=== PATIENT | male | born 1985 | race Caucasian/White ===

== ENCOUNTER 2016-10-18 16:19 | Emergency (ER) | payer BC, OTHER ==
[2016-10-18] MEDS ORDERED: Sodium Chloride 0.9% 2.5 ML Syringe FLUSH PRN (16:59)
[2016-10-18] MEDS ORDERED: Famotidine 20 MG/2 ML SDV IVPUSH ONE (16:59)
[2016-10-18] MEDS ORDERED: Sodium Chloride 0.9% 1,000 ML IV ONE (16:59)
[2016-10-18] MEDS ORDERED: Sodium Chloride 0.9% 10 ML Syringe FLUSH PRN (16:59)
--- NOTE | 2016-10-18 17:05 | EDM.PDOC ---
ED HISTORY OF PRESENT ILLNESS - General Chief Complaint: Chest Pain Stated Complaint: CHEST PAIN Time Seen by Provider: 10/18/16 16:25 Source of Information: Reports: Patient History Limitations: Reports: No limitations - History of Present Illness INITIAL COMMENTS - FREE TEXT/NARRATIVE: History of present illness: [] Patient has had 3 weeks of constant chest pain and upper abdominal pain. It' s sharp and pinching in the only time it is alleviated his when he eats or drinks. He denies any vomiting, diarrhea, fevers, chills or shortness of breath. Patient states he has been diagnosed with costochondritis in the past and has had a gallon of water fall on his chest 5 years ago. He works out regularly and has not been able to work out for the past 3 weeks because of having the flu he states his chest pain is always worse when he does not work out. Patient smokes and drinks alcohol. Review of systems: As per history of present illness and below otherwise all systems reviewed and negative. Past medical history: As per history of present illness and as reviewed below otherwise noncontributory. Surgical history: As per history of present illness and as reviewed below otherwise noncontributory. Social history: No reported history of drug or alcohol abuse. Family history: As per history of present illness and as reviewed below otherwise noncontributory. Physical exam: General: Well developed, well nourished in NAD HEENT: Atraumatic, normocephalic, pupils reactive, negative for conjunctival pallor or scleral icterus, mucous membranes moist, throat clear, neck supple, nontender, trachea midline. Lungs: Clear to auscultation, breath sounds equal bilaterally, chest nontender. Heart: S1S2, regular, negative for clicks, rubs, or JVD. Abdomen: Soft, nondistended, nontender. Negative for masses or hepatosplenomegaly. Negative for costovertebral tenderness. Pelvis: Stable nontender. Genitourinary: Deferred. Rectal: Deferred. Extremities: Atraumatic, negative for cords or calf pain. Neurovascular unremarkable. Neuro: Awake, alert, oriented. Cranial nerves II through XII unremarkable. Cerebellum unremarkable. Motor and sensory unremarkable throughout. Exam nonfocal. Diagnostics: [] lab EKG x-rays all negative in the ED Therapeutics: [] IV hydrated Pepcid IV given Impression: [] duodenal ulcer given symptoms and history and negative workup in the ED. Plan: [] Prilosec twice a day followup with primary care physician Definitive disposition and diagnosis as appropriate pending reevaluation and review of above. - Related Data Allergies/ADRs: Allergies Allergy/AdvReac Type Severity Reaction Status Date / Time No Known Allergies Allergy Verified 10/18/16 16:57 Home Meds: Home Meds . [No Known Home Meds] 10/18/16 [History] Past Medical History - Past Health History Medical/Surgical History: Denies Medical/Surgical History Social & Family History - Tobacco Use Smoking Status *Q: Unknown Ever Smoked Second Hand Smoke Exposure: No - Alcohol Use Days Per Week of Alcohol Use: 0 Number of Drinks Per Day: 5 Total Drinks Per Week: 0 - Recreational Drug Use Recreational Drug Use: No ED ROS GENERAL - Review of Systems Review Of Systems: See Below (See history of present illness) ED EXAM, GENERAL - Physical Exam Exam: See Below (See history of present illness) Course - Vital Signs Last Recorded V/S: Last Vital Signs Temp 37.3 C 10/18/16 16:40 Pulse 93 10/18/16 16:40 Resp 16 10/18/16 16:40 BP 118/73 10/18/16 16:40 Pulse Ox 95 10/18/16 16:40 - Orders/Labs/Meds Orders: Active Orders 24 hr Category Date Time Status EKG Documentation Completion [RC] STAT Care 10/18/16 16:59 Active Chest 2V [CR] Stat Exams 10/18/16 17:04 Taken Sodium Chloride 0.9% [Saline Flush] Med 10/18/16 16:59 Active 10 ml FLUSH ASDIRECTED PRN Sodium Chloride 0.9% [Saline Flush] Med 10/18/16 16:59 Active 2.5 ml FLUSH ASDIRECTED PRN Peripheral IV Insertion Adult [OM.PC] Stat Oth 10/18/16 16:59 Ordered Medication Orders Sodium Chloride (Saline Flush) 10 ml FLUSH ASDIRECTED PRN PRN Reason: Keep Vein Open Last Admin: 10/18/16 17:59 Dose: 10 ml Sodium Chloride (Saline Flush) 2.5 ml FLUSH ASDIRECTED PRN PRN Reason: Keep Vein Open Last Admin: 10/18/16 17:59 Dose: 2.5 ml Labs: Laboratory Tests 10/18/16 10/18/16 10/18/16 Range/Units 17:21 17:21 17:21 WBC 4.67 (4.0-11.0) K/uL RBC 4.65 (4.50-5.90) M/uL Hgb 13.8 (13.0-17.0) g/dL Hct 41.5 (38.0-50.0) % MCV 89.2 (80.0-98.0) fL MCH 29.7 (27.0-32.0) pg MCHC 33.3 (31.0-37.0) g/dL RDW Std Deviation 43.0 (28.0-62.0) fl RDW Coeff of Jerrod 13 (11.0-15.0) % Plt Count 203 (150-400) K/uL MPV 8.80 (7.40-12.00) fL Neut % (Auto) 68.1 (48.0-80.0) % Lymph % (Auto) 17.1 (16.0-40.0) % [place] % (Auto) 12.2 (0.0-15.0) % Eos % (Auto) 2.4 (0.0-7.0) % Baso % (Auto) 0.2 (0.0-1.5) % Neut # 3.2 (1.4-5.7) K/uL Lymph # 0.8 (0.6-2.4) K/uL [place] # 0.6 (0.0-0.8) K/uL Eos # 0.1 (0.0-0.7) K/uL Baso # 0.0 (0.0-0.1) K/uL Nucleated RBC % 0.0 /100WBC Nucleated RBCs # 0 K/uL Sodium 137 (136-146) mmol/L Potassium 4.4 (3.5-5.1) mmol/L Chloride 103 (98-110) mmol/L Carbon Dioxide 25 (21-31) mmol/L BUN 18 (6.0-23.0) mg/dL Creatinine 1.1 (0.6-1.5) mg/dL Est Cr Clr Drug Dosing 94.14 mL/min Estimated GFR (MDRD) > 60.0 ml/min Glucose 88 (60-110) mg/dL Calcium 9.2 (8.8-10.8) mg/dL Total Bilirubin 1.0 (0.1-1.5) mg/dL AST 38 (5-40) IU/L ALT 84 H (8-54) IU/L Alkaline Phosphatase 84 (40-150) Troponin I < 0.10 (0.0-0.29) NG/ML Total Protein 7.6 (6.0-8.0) g/dL Albumin 4.0 (3.5-5.0) g/dL Globulin 3.6 H (2.0-3.5) g/dL Albumin/Globulin Ratio 1.1 L (1.3-2.8) Lipase 15 (7-80) U/L Meds: Medications Generic Name Dose Route Start Last Admin Trade Name Freq PRN Reason Stop Dose Admin Sodium Chloride 10 ml 10/18/16 16:59 10/18/16 17:59 Saline Flush FLUSH 10 ml ASDIRECTED PRN Administration Keep Vein Open Sodium Chloride 2.5 ml 10/18/16 16:59 10/18/16 17:59 Saline Flush FLUSH 2.5 ml ASDIRECTED PRN Administration Keep Vein Open Discontinued Medications Generic Name Dose Route Start Last Admin Trade Name Freq PRN Reason Stop Dose Admin Famotidine 20 mg 10/18/16 16:59 10/18/16 17:56 Pepcid IVPUSH 10/18/16 17:00 20 mg ONETIME ONE Administration Sodium Chloride 1,000 mls @ 999 mls/hr 10/18/16 16:59 10/18/16 17:56 Normal Saline IV 10/18/16 17:59 999 mls/hr .Bolus ONE Administration Departure - Departure Time of Disposition: 18:23 Disposition: Home, Self-Care 01 Condition: good Clinical Impression: Epigastric pain Referrals: Rogers Hua MD [Primary Care Provider] - Forms: ED Department Discharge Additional Instructions: The following information is given to patients seen in the emergency department who are being discharged to home. This information is to outline your options for follow-up care. We provide all patients seen in our emergency department with a follow-up referral. The need for follow-up, as well as the timing and circumstances, are variable depending upon the specifics of your emergency department visit. If you don't have a primary care physician on staff, we will provide you with a referral. We always advise you to contact your personal physician following an emergency department visit to inform them of the circumstance of the visit and for follow-up with them and/or the need for any referrals to a consulting specialist. The emergency department will also refer you to a specialist when appropriate. This referral assures that you have the opportunity for follow-up care with a specialist. All of these measure are taken in an effort to provide you with optimal care, which includes your follow-up. Under all circumstances we always encourage you to contact your private physician who remains a resource for coordinating your care. When calling for follow-up care, please make the office aware that this follow-up is from your recent emergency room visit. If for any reason you are refused follow-up, please contact the [facility] Emergency Department at and asked to speak to the emergency department charge nurse. Gil twice a day, followup Dr. Hua return if symptoms worsen [facility] [address] [place] [id number] - My Orders Last 24 Hours: My Active Orders 10/18/16 16:59 EKG Documentation Completion [RC] STAT Sodium Chloride 0.9% [Saline Flush] 10 ml FLUSH ASDIRECTED PRN Sodium Chloride 0.9% [Saline Flush] 2.5 ml FLUSH ASDIRECTED PRN Peripheral IV Insertion Adult [OM.PC] Stat 10/18/16 17:04 Chest 2V [CR] Stat - Assessment/Plan Last 24 Hours: My Active Orders 10/18/16 16:59 EKG Documentation Completion [RC] STAT Sodium Chloride 0.9% [Saline Flush] 10 ml FLUSH ASDIRECTED PRN Sodium Chloride 0.9% [Saline Flush] 2.5 ml FLUSH ASDIRECTED PRN Peripheral IV Insertion Adult [OM.PC] Stat 10/18/16 17:04 Chest 2V [CR] Stat
[2016-10-18 17:53] LABS: CHLORIDE,CL 103 mmol/L (98-110); SODIUM,NA 137 mmol/L (136-146)
[2016-10-18] MEDS ORDERED: Iopamidol 755 Mg/ML 100 ML Bottle IVPUSH STA (19:05)
[2016-10-18 20:20] VITALS: BP 124/73
--- NOTE | 2016-10-21 19:06 | CR ---
EXAM DATE: 10/18/16 PATIENT'S AGE: 31 Patient: CHAU BURNS Facility: [place], [place] Site . Site : 1985 Study: XRay Chest [id number]/2017 5:33:28 PM Ordering Physician: Mauro Mckinley Final Report: INDICATION: Chest pain. Shortness of breath. Pain under sternum for 3 weeks. Technique: PA and lateral chest x-ray. Findings: Heart size normal. Smooth mildly increased soft tissue density focally in the mid and upper retrosternal region on the lateral view is indeterminate. Comparison with any available previous imaging would be helpful in determining if this is a new or stable finding. If clinically desired this could be correlated to CT. Lungs clear without infiltrate. Chest otherwise negative. Dictated by Ananda Stone MD @ Oct 18 2016 6:23PM (Electronic Signature) Report Signed by Proxy and Original Signed Document filed in the Medical Record. [facility]IGI
--- NOTE | 2016-10-21 19:09 | CT ---
EXAM DATE: 10/18/16 PATIENT'S AGE: 31 Patient: CHAU BURNS Facility: [place], [place] Site . Site : 1985 Study: CT Chest [id number]/10/2017 7:21:37 PM Ordering Physician: Mauro Mckinley Final Report: HISTORY: Pain, shortness of breath. Abnormal chest x-ray. TECHNIQUE: The chest was scanned using helical technique at 3 mm intervals after 75 cc of Isovue-370. Sagittal and coronal reconstructions were performed. FINDINGS: Mediastinum and harsha: The thyroid is unremarkable in appearance. No pathologic mediastinal or hilar lymphadenopathy seen. No retrosternal mass is appreciated. Cardiovascular structures: Thoracic aorta is normal in caliber. The heart is normal in size. No pericardial effusion. Pleura: No pleural effusion. Lungs: Clear. Chest wall: No pathologic axillary lymphadenopathy is seen. No chest wall mass. Upper abdomen: The visualized liver is homogeneous. The adrenal glands are normal. Spleen is borderline enlarged at 13.9 cm in AP diameter. Upper poles of kidneys have symmetric nephrograms. Visualized pancreatic parenchyma is homogeneous. Osseous structures: Normal for age. IMPRESSION: 1. No pathologic mediastinal or hilar lymphadenopathy. No retrosternal mass. 2. Borderline splenomegaly. Dictated by Zoie Banuelos MD @ 10/18/2016 7:49:35 PM Dictated by: Zoie Banuelos MD @ 10/18/2016 19:50:04 (Electronic Signature) Report Signed by Proxy and Original Signed Document filed in the Medical Record. [facility]
== END 2016-10-18 20:10 | disposition home or self-care (01) ==
LOC: MW.ED 16:19
DX: R07.9 Chest pain, unspecified (principal); R10.13 Epigastric pain; R10.10 Upper abdominal pain, unspecified
CPT/HCPCS: 36415; 71020; 71260; 80053; 83690; 84484; 85025; 93005; 96361; 96374; 99285; J7040; Q9967; 99284

== ENCOUNTER 2018-12-09 14:32 | Emergency (ER) | payer OTHER ==
--- NOTE | 2018-12-09 14:57 | EDM.PDOC ---
ED HPI GENERAL MEDICAL PROBLEM - General Chief Complaint: ENT Problem Stated Complaint: SORE THROAT Time Seen by Provider: 12/09/18 14:47 - History of Present Illness INITIAL COMMENTS - FREE TEXT/NARRATIVE: HISTORY AND PHYSICAL: History of present illness: The patient is a 33-year-old male who did not have his tonsils removed but has had mono in the past at 19 years of age and presents with pain and a sore throat more on the right side that started a few days ago. The patient says that he usually gets a sore throat whenever he has a sinus infection or has sinus drainage and he does have seasonal allergies he believes but does not take any medications. He said he started having sinus drainage again and then started having the pain in the throat and the right side of his neck but it was not the typical sensation he has had in the past and he is worried something different. He says there is pain with swallowing but he is able to eat and drink and he has not had any fevers chills or specific cough. He feels like he does have some congestion and he has a lot of nasal drainage. He does not have sinus pain or pressure and no headache and he is concerned that there is pain where his lymph nodes are more on the right side. He has no earache. Patient did not get his influenza swab this year and he has no local provider The patient says that he got concerned because he started "freaking himself out " as the throat pain is different and he is worried that he might have a cancer Review of systems: As per history of present illness and below otherwise all systems reviewed and negative. Past medical history: As per history of present illness and as reviewed below otherwise noncontributory. Surgical history: As per history of present illness and as reviewed below otherwise noncontributory. Social history: No reported history of drug or alcohol abuse. Family history: As per history of present illness and as reviewed below otherwise noncontributory. Physical exam: General: Well-developed well-nourished man who is nontoxic and speaks clearly without breathlessness worse or muffled voice and vital signs are noted by me HEENT: Atraumatic, normocephalic, pupils reactive, negative for conjunctival pallor or scleral icterus, mucous membranes moist, throat clear, there is diffuse posterior oral pharyngeal erythema without swelling or exudates and there is some very minimal anterior cervical adenopathy right greater than last which is tender and there is no posterior adenopathy. There is no thyromegaly, neck supple, nontender, trachea midline. There is no discrete tenderness on palpation of the maxillary and frontal sinuses but the turbinates are engorged and inflamed bilaterally and the patient does have nasal drainage which appears clear Lungs: Clear to auscultation, breath sounds equal bilaterally, chest nontender. no wheezing stridor or work of breathing Heart: S1S2, regular rate and rhythm no overt murmurs Abdomen: Soft, nondistended, nontender. NABS Pelvis: Deferred. Genitourinary: Deferred. Rectal: Deferred. Extremities: Atraumatic, full range of motion Neurovascular unremarkable. Neuro: Awake, alert, oriented. Cranial nerves II through XII unremarkable. Cerebellum unremarkable. Motor and sensory unremarkable throughout. Exam nonfocal. Diagnostics: CBC rapid strep influenza soft tissue neck Therapeutics: Due to the patient's above concerns about cancer I told him that I cannot fully evaluate him for this problem and his concerns here in the ED but that we could look at basic labs and x-ray and then proceed further if the symptoms persist I discussed with the patient treating his sinusitis as well as his small lymphadenopathy and reevaluating in the clinic afterwards. Impression: rhinitis/sinusitis/pharyngitis Definitive disposition and diagnosis as appropriate pending reevaluation and review of above. throat Pain Score (Numeric/FACES): 6 - Related Data Allergies Allergy/AdvReac Type Severity Reaction Status Date / Time No Known Allergies Allergy Verified 12/09/18 14:53 Home Meds: Home Meds . [No Known Home Meds] 10/18/16 [History] Past Medical History - Past Health History Medical/Surgical History: Denies Medical/Surgical History - Past Surgical History HEENT Surgical History: Reports: Myringotomy w Tube(s), Oral Surgery Social & Family History - Family History Family Medical History: Noncontributory - Caffeine Use Caffeine Use: Reports: Coffee Caffeine Use Comment: 32oz/day ED ROS GENERAL - Review of Systems Review Of Systems: ROS reveals no pertinent complaints other than HPI. ED EXAM, GENERAL - Physical Exam Exam: See Below (see Dictation) Course - Vital Signs Last Recorded V/S: Last Vital Signs Temp 36.3 C 05/01/19 14:50 Pulse 88 12/09/18 14:50 Resp 18 12/09/18 14:50 BP 149/96 H 12/09/18 14:50 Pulse Ox 98 12/09/18 14:50 - Orders/Labs/Meds Orders: Active Orders 24 hr Category Date Time Status CULTURE STREP A CONFIRMATION [RM] Stat Lab 12/09/18 15:00 Results STREP SCRN A RAPID W CULT CONF [RM] Stat Lab 12/09/18 15:00 Results Labs: Laboratory Tests 12/09/18 Range/Units 15:00 WBC 10.08 (4.0-11.0) K/uL RBC 4.97 (4.50-5.90) M/uL Hgb 14.9 (13.0-17.0) g/dL Hct 44.6 (38.0-50.0) % MCV 89.7 (80.0-98.0) fL MCH 30.0 (27.0-32.0) pg MCHC 33.4 (31.0-37.0) g/dL RDW Std Deviation 43.7 (28.0-62.0) fl RDW Coeff of Jerrod 13 (11.0-15.0) % Plt Count 303 (150-400) K/uL MPV 9.20 (7.40-12.00) fL Neut % (Auto) 72.2 (48.0-80.0) % Lymph % (Auto) 19.1 (16.0-40.0) % [place] % (Auto) 6.7 (0.0-15.0) % Eos % (Auto) 1.9 (0.0-7.0) % Baso % (Auto) 0.1 (0.0-1.5) % Neut # (Auto) 7.3 H (1.4-5.7) K/uL Lymph # (Auto) 1.9 (0.6-2.4) K/uL [place] # (Auto) 0.7 (0.0-0.8) K/uL Eos # (Auto) 0.2 (0.0-0.7) K/uL Baso # (Auto) 0.0 (0.0-0.1) K/uL Nucleated RBC % 0.0 /100WBC Nucleated RBCs # 0 K/uL Departure - Departure Time of Disposition: 15:58 Disposition: Home, Self-Care 01 Condition: Good Clinical Impression: Lymphadenopathy Sinusitis Qualifiers: Sinusitis location: unspecified location Chronicity: unspecified Qualified Code (s): J32.9 - Chronic sinusitis, unspecified Pharyngitis Qualifiers: Pharyngitis/tonsillitis etiology: unspecified etiology Qualified Code(s): J02.9 - Acute pharyngitis, unspecified - Discharge Information Referrals: PCP,None [Primary Care Provider] - Forms: ED Department Discharge Additional Instructions: The following information is given to patients seen in the emergency department who are being discharged to home. This information is to outline your options for follow-up care. We provide all patients seen in our emergency department with a follow-up referral. The need for follow-up, as well as the timing and circumstances, are variable depending upon the specifics of your emergency department visit. If you don't have a primary care physician on staff, we will provide you with a referral. We always advise you to contact your personal physician following an emergency department visit to inform them of the circumstance of the visit and for follow-up with them and/or the need for any referrals to a consulting specialist. The emergency department will also refer you to a specialist when appropriate. This referral assures that you have the opportunity for followup care with a specialist. All of these measure are taken in an effort to provide you with optimal care, which includes your followup. Under all circumstances we always encourage you to contact your private physician who remains a resource for coordinating your care. When calling for followup care, please make the office aware that this follow-up is from your recent emergency room visit. If for any reason you are refused follow-up, please contact the [facility] emergency department at and ask to speak to the emergency department charge nurse. [facility] Primary care- Internal Medicine and Family [address] [address] Please call and schedule a follow-up appointment for next week with your provider in the clinic and use all medications as prescribed. Hydration rest and use [id number] Tylenol and ibuprofen for any pain and fevers that you made develop. He may also use [id number] antihistamine such as Zyrtec or Claritin to help with the sinus fluid. Return to ER as needed and as discussed - My Orders Last 24 Hours: My Active Orders 12/09/18 15:00 CULTURE STREP A CONFIRMATION [RM] Stat STREP SCRN A RAPID W CULT CONF [RM] Stat - Assessment/Plan Last 24 Hours: My Active Orders 12/09/18 15:00 CULTURE STREP A CONFIRMATION [RM] Stat STREP SCRN A RAPID W CULT CONF [] Stat
--- NOTE | 2018-12-09 15:40 | CR ---
EXAMINATION: Soft tissue neck HISTORY: Pain COMPARISON: None TECHNIQUE: AP and lateral views FINDINGS: Prevertebral soft tissues appear normal. The epiglottis is normal. Visualized osseous structures appear intact. Subglottic trachea is normal in caliber. No abnormal calcifications. IMPRESSION: Unremarkable soft tissue neck.
[2018-12-09 16:23] VITALS: BP 146/85
== END 2018-12-09 16:23 | disposition home or self-care (01) ==
LOC: MW.ED 14:32
DX: J02.9 Acute pharyngitis, unspecified (principal); J32.9 Chronic sinusitis, unspecified; R59.0 Localized enlarged lymph nodes; Z96.22 Myringotomy tube(s) status
CPT/HCPCS: 36415; 70360; 70360-26; 85025; 87081; 87804; 87880-QW; 99283-25